=== PATIENT | male | born 1975 | race Caucasian/White ===

== ENCOUNTER 2017-01-21 14:30 | Emergency (ER) | payer BC ==
[2017-01-21] MEDS ORDERED: LISINOPRIL 10 MG TABLET PO ONE (15:16)
[2017-01-21] MEDS ORDERED: LISINOPRIL 10 MG TABLET ONE (15:18)
--- OUTSIDE RECORDS SUMMARY | 2017-01-21 15:23 | XMS REPORT | Continuity of Care Document ---
:1975 Author Organization [employer] [place] [address] Care Team Providers Name Role Phone aJkob Dougherty Primary Care Provider [phone] Source Comments This disclosure is being made pursuant to the [employer] program and maynot contain all information available regarding this patient.[facility] Active Allergies and Adverse Reactions Allergen Noted Date Severity Reactions Comments Sulfa Antibiotics 03/04/2013 Low Rash Current Medications Be aware that medications may not be up to date as of this document. Alwaysverify current medications with the patient. Prescription Sig. Disp. Refills Start Date End Date Status lamoTRIgine Take 300 mg by Active (LAMICTAL) 100 MG mouth every tablet afternoon. valACYclovir Take 500 mg by Active (VALTREX) 500 MG mouth daily. tablet HYDROcodone-acetamino Take 1 tablet by Active phen (NORCO) 7.5-325 mouth every 6 MG per tablet (six) hours as needed. Indications: Moderate to Moderately Severe Pain ALPRAZolam (XANAX) Take 0.5 mg by Active 0.5 MG tablet mouth as needed. Indications: Feeling Anxious docusate sodium 100 Take 100 mg by 10 capsule 0 03/06/2013 Active MG CAPS mouth 2 (two) times daily. enoxaparin sodium Inject 0.4 mLs 8 Syringe 0 03/06/2013 Active (LOVENOX) 40 MG/0.4ML into the skin SOLN daily. HYDROcodone-acetamino Take 1 tablet by 30 tablet 0 03/06/2013 Active phen (NORCO) 7.5-325 mouth every 4 MG per tablet (four) hours as needed. Active Problems Not on file Social History Tobacco Use Types Packs/Day Years Used Date Current Some Day Smoker Comments:1 pk per week Last Filed Vital Signs Vital Sign Reading Time Taken Blood Pressure 132/85 03/06/2013 8:00 AM CDT Pulse 89 03/06/2013 8:00 AM CDT Temperature 36.9 C (98.4 F) 03/06/2013 8:00 AM CDT Respiratory Rate 20 03/06/2013 8:00 AM CDT Height 1.829 m (6') 03/05/2013 5:58 AM CDT Weight 117.113 kg (258 lb 3 oz) 03/05/2013 5:58 AM CDT Body Mass Index 35.01 03/05/2013 5:58 AM CDT Oxygen Saturation 97% 03/06/2013 8:00 AM CDT Plan of Care Health Maintenance Due Date Last Done Comments Tetanus/Pertussis (1 - Tdap) 1992 Retired-INFLUENZA VACCINE 06/27/2016 Results from Last 3 Months Not on file
--- NOTE | 2017-01-21 15:25 | ERNOTE ---
Medical Problem HPI - Narrative Date of Service: 01/21/17 - General Chief Complaint: General Assessment Time Seen by Provider: 01/21/17 15:04 Source: patient Exam Limitations: no limitations - Immun/Allergies/Home Medications Immunizations: IMMUNIZATION HX Immunizations Up to Date Yes History of Influenza Vaccine Yes Hx Pneumococcal Vaccination No Allergies/Adverse Reactions: Allergies Sulfa (Sulfonamide Antibiotics) Allergy (Verified 01/21/17 14:52) Hives Home Medications: HOME MEDICATIONS Lamotrigine [Lamictal] 300 mg PO DAILY 01/21/17 [Last Taken Unknown] Lisinopril [Zestril] 10 mg PO DAILY #30 tab 01/21/17 [Last Taken Unknown] Sertraline HCl [Zoloft] 150 mg PO DAILY 01/21/17 [Last Taken Unknown] - History of Present History Narrative: 41yo, M, 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 BP elevated and sent to ER for treatment. He does not have a local PCP , has recently located to the [facility] from near [place]. He has seen a physician for an occupational health evaluation, but otherwise no local PCP. He denies known hx of HTN, but has noted his DBP to range 90-100 after previous visits to the doctor. Denies any CP, SOB, weakness today. States he is feeling a little anxious, after being told his BP was elevated, but otherwise feeling well. Review of Systems - Review of Systems Constitutional: Absent: fever, chills, weakness, fatigue, malaise EYE: Absent: eye pain, vision changes Respiratory: Absent: shortness of breath, cough, wheezing Cardiology: Absent: chest pain, palpitations, syncope, edema Gastrointestinal/Abdominal: Absent: nausea, vomiting, abdominal pain Skin: Present: no symptoms reported Neurological: Absent: dizziness/light-headedness, weakness, numbness, tingling - Patient's Past Medical History Patient History - Medical: No pertinent hx Patient History - Cardiac/Respiratory: Hypertension Patient History - Cancer: No Hx of Cancer Patient History - Surgical Procedures: No surgical history Patient History - Other: None - Family History Mother Family History - Cancer: Other Father Family History - Cancer: Prostate - Social History Living Situations: home Abuse History: No History of abuse Psych History: No pertinent hx Smoking Status: Former smoker Alcohol Use: occasionally Drug Use: none - Immunizations Immunizations Up to Date: Yes Hx Pneumococcal Vaccination: No History of Influenza Vaccine: Yes Physical Exam - Physical Exam General Appearance: Present: wd/wn, alert, no apparent distress Eye Exam: Normal inspection: bilateral, EOMI: bilateral, Eyelid inflammation: bilateral - absent Respiratory: Present: no respiratory distress, normal breath sounds, lungs clear. Absent: crackles, rhonchi, wheezing Cardiovascular/Chest: Present: regular rate, rhythm, no murmur Neurological Exam: Present: alert, oriented, normal mood/affect, no motor/ sensory deficits - 5/5 strength x 4 ext, head of product II-XII nml as tested. Absent: facial droop, motor weakness Skin Exam: Present: normal color, warm/dry ED Progress - Vital Signs Patient's Vital Signs:: I have reviewed the patient's vital signs. Vital Signs: Vital Signs 01/21/17 14:46 Temperature 36.4 C L Pulse Rate 73 Respiratory 16 Rate Blood Pressure 175/117 O2 Sat by Pulse 96 Oximetry - Progress/Reassessment Chief Complaint: General Assessment Departure - Departure Clinical Impression: Hypertension Qualifiers: Hypertension type: essential hypertension Qualified Code(s): I10 - Essential ( primary) hypertension Disposition: Home self-care Condition: Stable Instructions: Hypertension, [id number], Managing Your High Blood Pressure Additional Instructions: Call and schedule follow up appointment with a primary care physician for recheck and blood pressure management Keep diary of home blood pressure recordings and bring to your appointment Referrals: Davion Gamble MD [Staff Physician] - Prescriptions: Lisinopril [Zestril] 10 mg PO DAILY #30 tab
[2017-01-21 15:56] VITALS: BP 152/102
== END 2017-01-21 15:51 | disposition home or self-care (01) ==
LOC: ER 14:30
DX: I10 Essential (primary) hypertension (principal)